=== PATIENT | male | born 1975 | race Caucasian/White ===

== ENCOUNTER 2023-07-01 15:13 | Emergency (ER) | payer SELFPAY ==
[~2023-07-01] VITALS: Ht 190.5 cm; Wt 146.0 kg
[~2023-07-01 15:13] MED LIST: TOPUD
[2023-07-01 15:18] VITALS: BP 175/96; PULSE 77; RESP 18; TEMP 99.6; O2SAT 97
[2023-07-01 16:44] LABS: BASOPHILS % 0.6 % (0.0-2.0); EOSINOPHILS % 0.1 % (0.0-5.0); HEMATOCRIT. 50.4 % (42.0-52.0); HEMOGLOBIN. 16.7 g/dL (14.0-18.0); LYMPHOCYTES % 10.3 % (20.0-50.0); MEAN CORPUSCULAR HEMOGLOBIN 27.5 pg (28.0-32.0); MEAN CORPUSCULAR HGB CONC 33.2 g/dL (31.0-37.0); MEAN CORPUSCULAR VOLUME 82.7 fL (80.0-94.0); MEAN PLATELET VOLUME 9.6 fl (7.4-10.4); MONOCYTES % 8.9 % (2.0-8.0); NEUTROPHILS % 80.1 % (40.0-76.0); PLATELET 192 x1000/uL (130-400); RED BLOOD CELL COUNT 6.09 mill/uL (4.7-6.1); RED CELL DISTRIBUTION WIDTH 15.3 % (11.6-14.6); WHITE BLOOD COUNT 6.2 x1000/uL (4.5-11.0)
[2023-07-01 16:53] LABS: ALANINE AMINOTRANSFERASE 18 IU/L (10-49); ASPARTATE AMINOTRANSFERASE 26 IU/L (<34); BILIRUBIN TOTAL 0.6 mg/dL (0.1-1.0); CALCIUM 8.7 mg/dL (8.7-10.4); CARBON DIOXIDE 29 mEq/L (21-32); CHLORIDE 101 mEq/L (98-107); GLUCOSE 103 mg/dL (70-105); PROTEIN TOTAL 7.2 g/dL (6.0-8.3); SODIUM 136 mEq/L (136-145); UREA NITROGEN BLOOD 16 mg/dL (9-23)
[2023-07-01] MEDS ORDERED: ACETAMINOPHEN 325MG TABLET PO ONE (18:30)
[2023-07-01] MEDS ORDERED: ACETAMINOPHEN 500MG TABLET PO NR (21:30)
== END 2023-07-01 22:45 | disposition home or self-care (01) ==
LOC: ER 15:20
DX: R42 Dizziness and giddiness (principal); F15.90 Other stimulant use, unspecified, uncomplicated; Z98.890 Other specified postprocedural states; Z91.013 Allergy to seafood
CPT/HCPCS: 36415; 80053; 85025; 93005; 99284

== ENCOUNTER 2023-10-02 23:04 | Emergency (ER) | payer SELFPAY ==
[~2023-10-02] VITALS: Ht 190.5 cm; Wt 127.0 kg
[2023-10-02 23:18] VITALS: O2SAT 98
[2023-10-02 23:51] LABS: BASOPHILS % 0.6 % (0.0-2.0); EOSINOPHILS % 1.4 % (0.0-5.0); HEMATOCRIT. 39.8 % (42.0-52.0); HEMOGLOBIN. 13.1 g/dL (14.0-18.0); LYMPHOCYTES % 14.1 % (20.0-50.0); MEAN CORPUSCULAR HEMOGLOBIN 27.5 pg (28.0-32.0); MEAN CORPUSCULAR HGB CONC 32.9 g/dL (31.0-37.0); MEAN CORPUSCULAR VOLUME 83.5 fL (80.0-94.0); MEAN PLATELET VOLUME 8.9 fl (7.4-10.4); MONOCYTES % 8.5 % (2.0-8.0); NEUTROPHILS % 75.4 % (40.0-76.0); PLATELET 330 x1000/uL (130-400); RED BLOOD CELL COUNT 4.77 mill/uL (4.7-6.1); RED CELL DISTRIBUTION WIDTH 15.3 % (11.6-14.6); WHITE BLOOD COUNT 10.7 x1000/uL (4.5-11.0)
[2023-10-03 00:08] LABS: ALANINE AMINOTRANSFERASE 26 IU/L (10-49); ALBUMIN 4.2 g/dL (3.2-4.8); ASPARTATE AMINOTRANSFERASE 21 IU/L (<34); BILIRUBIN TOTAL 0.7 mg/dL (0.1-1.0); CALCIUM 8.9 mg/dL (8.7-10.4); CARBON DIOXIDE 24 mEq/L (21-32); CHLORIDE 106 mEq/L (98-107); CREATININE 0.9 mg/dL (0.6-1.3); GLUCOSE 107 mg/dL (70-105); POTASSIUM 3.9 mEq/L (3.5-5.1); PROTEIN TOTAL 8.1 g/dL (6.0-8.3); SODIUM 137 mEq/L (136-145); UREA NITROGEN BLOOD 20 mg/dL (9-23)
[2023-10-03] MEDS ORDERED: TOPUD MT (02:44)
[2023-10-03] MEDS ORDERED: CEPH500C2 MT (02:44)
[2023-10-03] MEDS ORDERED: SULF1TAB48 MT (02:44)
[2023-10-03] MEDS: CEPHALEXIN 250MG CAPSULE PO ONE (02:53)
[2023-10-03] MEDS: SULFAMETHOXAZOLE/TRIMETHOPRIM 800/160MG TABLET PO ONE (02:53)
[2023-10-03 03:05] VITALS: BP 164/87; PULSE 84; RESP 17; TEMP 98.3
== END 2023-10-03 03:05 | disposition home or self-care (01) ==
LOC: ER 23:04
DX: L03.115 Cellulitis of right lower limb (principal); E11.9 Type 2 diabetes mellitus without complications; I10 Essential (primary) hypertension; F15.90 Other stimulant use, unspecified, uncomplicated; Z98.890 Other specified postprocedural states; Z91.013 Allergy to seafood
CPT/HCPCS: 80053; 85025; 36415; 99284; 93971; Z7610

== ENCOUNTER 2024-05-20 07:28 | Emergency (ER) | payer SELFPAY ==
[~2024-05-20] VITALS: Ht 180.3 cm; Wt 146.0 kg
[~2024-05-20 07:28] MED LIST changes: +CEPH500C2 MT; +SULF1TAB48 MT; +TOPUD MT
[2024-05-20 07:31] VITALS: BP 125/100; PULSE 105; RESP 16; TEMP 98.2; O2SAT 96
== END 2024-05-20 07:48 | disposition left against medical advice (07) ==
LOC: ER 07:28
DX: R07.89 Other chest pain (principal); Z53.21 Procedure and treatment not carried out due to patient leaving prior to being seen by health care provider